=== PATIENT | male | born 1940 | race Caucasian/White ===

== ENCOUNTER 2022-09-26 10:36 | Emergency (ER) | payer MEDICARE, OTHER, SELFPAY ==
[2022-09-26] VITALS (9 sets, daily range): BP systolic 135–180; BP diastolic 92–114; PULSE 63–92; RESP 14–19; TEMP 36.6; O2SAT 92–96
--- NOTE | 2022-09-26 | XRR_ITS ---
PROCEDURE INFORMATION: Exam: XR Left Shoulder Exam date and time: 09/26/2022 1:17 PM Age: 82 years old Clinical indication: Device placement; Other: Post reduction TECHNIQUE: Imaging protocol: Radiologic exam of the left shoulder. Views: 1 view. COMPARISON: No relevant prior studies available. FINDINGS: Bones/joints: There is fracture deformity in the lateral aspect of the humeral head Soft tissues: Normal. XR/XR shoulder LT 1V [id number] IMPRESSION: 1. A fracture deformity lateral aspect of the humeral head 2. Otherwise negative examination
--- NOTE | 2022-09-26 10:41 | XRR_ITS ---
PROCEDURE INFORMATION: Exam: XR Right Shoulder Exam date and time: 09/26/2022 10:52 AM Age: 82 years old Clinical indication: Injury or trauma; Blunt trauma (contusions or hematomas); Right; Injury date: 09/29/22; Injury details: Fall x today on cattle gate. Pain in RT shoulder; Additional info: Fall injury to shoulder TECHNIQUE: Imaging protocol: Radiologic exam of the right shoulder. Views: 2 or more views. COMPARISON: No relevant prior studies available. FINDINGS: Bones/joints: Anterior dislocation of the right shoulder with Hill-Sachs fracture. There is a large mildly displaced fracture fragment measuring 3 cm. Moderate acromioclavicular joint degenerative changes. Osteopenia. Soft tissues: Normal. XR/XR shoulder RT min 2V* [id number] IMPRESSION: Anterior dislocation of the right shoulder with Hill-Sachs fracture. There is a large mildly displaced fracture fragment measuring 3 cm.
--- NOTE | 2022-09-26 11:14 | ED_ITS ---
Documented by User: GELY Pittman 09/26/22 15:43 HPI - Extremity Problem General: Chief complaint: Extremity Injury, Upper Stated complaint: Fall, Right shoulder injury Time Seen by Provider: 09/26/22 10:51 History of Present Illness: Patient is a 82-year-old male who comes to the ED with right shoulder injury. Injury occurred just prior to arrival. He was out side opening up a metal gate. He states that he tripped over something while opening the gate and started falling forward. He is unsure of the exact way his shoulder was injured but states that while he was falling forward he felt sharp pain in his right shoulder. He denies hitting his shoulder on gait or on the ground. Patient says he did not fall and hit the ground. Denies any head trauma, loss of consciousness or headache. Due to the pain in his right shoulder he went down and laid on the ground. He said his pain was a 10 out of 10 at that time. Pain worsens if he tries to move his right arm. Here in the ED he is resting with his arm in a comfortable position and he rates his pain currently a 5 out of 10. Past medical history of COPD and is on 2 L of oxygen at home at night. Associated symptoms: Deny chest pain, fever(s) or rash Review of Systems Const: Denies: fever(s), chills or fatigue Eyes: Denies: change in vision or eye discomfort ENMT: Denies: throat pain, odynophagia, nasal discharge or nasal congestion Card: Denies: chest pain, palpitations, edema, swelling of feet/ankles, dyspnea on exertion or orthopnea Resp: Denies: dyspnea, productive cough or non-productive cough GI: Denies: abdominal pain, nausea, vomiting, diarrhea, constipation or hematochezia : Denies: flank pain, difficulty urinating, dysuria or hematuria Musc: Reports: extremity pain (Right shoulder pain) and limited range of motion (Right shoulder); Denies: neck pain, back pain or extremity swelling Skin/Breast: Denies: rash or new lesions Neuro: Denies: headache(s), numbness in extremities or weakness in extremities [facility] ED PFS: Medical History (Updated 09/27/22 @ 07:19 by Orlando Singer DO) COPD (chronic obstructive pulmonary disease) No pertinent family history Physical Exam Const: COMMON NORMALS: patient oriented x3 HENMT: COMMON NORMALS: normocephalic HEAD & SCALP: normocephalic MOUTH: Normal oral and palatal mucosa present THROAT: posterior oropharynx normal and uvula midline Neck/C-Spine: COMMON NORMALS: supple GENERAL: Yes normal visual inspection Resp: COMMON NORMALS: normal respiratory effort, No retractions, No use of accessory muscles and clear to auscultation bilaterally AUSCULTATION: clear to auscultation bilaterally Cardio: COMMON NORMALS: regular rate, regular rhythm, S1 normal heart sound present, S2 normal heart sound present, No gallops present (Cardio), No clicks present (Cardio), No murmurs present (Cardio) and Peripheral pulses 2+ throughout RATE: regular rate RHYTHM: regular rhythm HEART SOUNDS: S1 normal heart sound present and S2 normal heart sound present PERIPHERAL PULSES: Peripheral pulses 2+ throughout GI: COMMON NORMALS: Normal to inspection, nondistended, normoactive bowel sounds present, Soft to palpation, non-tender and no masses PALPATION: Yes Soft to palpation : COMMON NORMALS: Yes no CVA tenderness BLADDER/KIDNEY EXAM: Yes no CVA tenderness Back/Pelvis: COMMON NORMALS: no CVA tenderness Extremity: NARRATIVE EXTREMITY EXAM: Right shoulder?tenderness around head of humerus. Limited range of motion due to pain. Neurovascular intact and normal cap refill under 2 seconds. Neuro: COMMON NORMALS: patient oriented x3 GAIT: Yes Normal gait present Skin: GENERAL SKIN EXAM: dry skin Course Vital Signs: Vital signs: Vital Signs Temperature 97.9 F 09/26/22 11:00 Pulse Rate 71 09/26/22 15:27 Respiratory Rate 18 09/26/22 16:25 Blood Pressure 148/100 09/26/22 15:27 Pulse Oximetry 95 09/26/22 16:25 Oxygen Delivery Me thod 09/26/22 15:27 Oxygen Flow Rate 2 09/26/22 15:27 MDM - Extremity (Nontraumatic) Medical Decision Making Patient is a 82-year-old male who comes to the ED with right shoulder injury. Injury occurred just prior to arrival. Denies any head trauma, headache, loss of consciousness. Vitals stable. Right shoulder?tenderness around head of humerus. Limited range of motion due to pain. Neurovascular intact and normal cap refill under 2 seconds. Right shoulder x-ray showed anterior dislocation with Hill-Sachs fx. I discussed patient case with Dr. Singer and he will be performing the conscious sedation and reduction. See his note for details on procedure. Lab Data Radiology Impressions Shoulder X-Ray 09/26/22 10:41 IMPRESSION: Anterior dislocation of the right shoulder with Hill-Sachs fracture. There is a large mildly displaced fracture fragment measuring 3 cm. Discharge Plan Discharge Patient Disposition: Home Clinical Impression: Anterior dislocation of right shoulder, Fracture of humerus Condition: Stable Prescriptions: New tramadol 50 mg tablet 50 mg PO QID PRN (Reason: pain) Qty: 20 0RF No Action atorvastatin 20 mg tablet 10 mg PO BEDTIME Aspir-81 81 mg Tablet,Delayed Release (Dr/Ec) 81 mg PO DAILY sotalol 120 mg tablet 120 mg PO BID Eliquis 5 mg tablet 50 mg PO BID Discharge Orders: Discharge ED (Routine); Ordered 09/26/22 Ordered By: Orlando Singer Discharge Diet: Usual diet Discharge Activity: Limit activity as instructed Patient Instructions: Opioid Safety, Pain Management Activity Restrictions/Additional Instructions: You were seen today for anterior shoulder dislocation there is a small fracture associated with it as well. Remain in the shoulder immobilizer until released by Ortho. Case management make arrangements for follow-up with orthopedic surgeon. Use the tramadol as needed for pain. Sign Out Sign Out Data: Patient Sign Out occurred on 09/26/22 at 12:03. Patient's care was discussed, and care was transferred from to Orlando Singer DO. Coding Level of Care Code ED Associate Account Director for [facility] Documented by User: Orlando Singer DO 09/27/22 07:27 HPI - Extremity Problem General: Chief complaint: Extremity Injury, Upper Stated complaint: Fall, Right shoulder injury Time Seen by Provider: 09/26/22 10:51 [facility] ED PFSH: Medical History (Updated 09/27/22 @ 07:19 by Orlando Singer DO) COPD (chronic obstructive pulmonary disease) No pertinent family history Procedures Orthopedic Joint Reduction Joint #1: Time Out Performed: Yes Side: right Joint Reduction Location: shoulder Analgesia: procedural sedation Shoulder Technique Used (if applicable): traction/counter-traction Post-reduction neuro exam: intact and no change Post-reduction vascular: intact and no change Post Reduction X-Ray Obtained: Yes Post Reduction X-Ray Results: reduced Splint Applied: Yes (Shoulder immobilizer) Patient Tolerated Procedure: well Procedural Sedation Indication: fracture/dislocation reduction ASA Class: II Time of Last PO Intake: 08:30 Fentanyl: IV Fentanyl dose (mcg): 50 Midazolam: IV Midazolam dose (mg): 3 Patient Tolerated Procedure: well Complications: none Interventions: oxygen applied Additional Comments: Oxygen probe applied prophylactically had onset of conscious sedation. Course Vital Signs: Vital signs: Vital Signs Temperature 97.9 F 09/26/22 11:00 Pulse Rate 71 09/26/22 15:27 Respiratory Rate 18 09/26/22 16:25 Blood Pressure 148/100 09/26/22 15:27 Pulse Oximetry 95 09/26/22 16:25 Oxygen Delivery Me thod 09/26/22 15:27 Oxygen Flow Rate 2 09/26/22 15:27 MDM - Extremity (Nontraumatic) Medical Decision Making Patient is a 82-year-old male who comes to the ED with right shoulder injury. I njury occurred just prior to arrival. Denies any head trauma, headache, loss of consciousness. Vitals stable. Right shoulder?tenderness around head of humerus. Limited range of motion due to pain. Neurovascular intact and normal cap refill under 2 seconds. Right shoulder x-ray showed anterior dislocation with Hill-Sachs fx. I discussed patient case with Dr. Singer and he will be performing the conscious sedation and reduction. See his note for details on procedure. Patient care handoff received from Jona Mendez continuation of ED evaluation. I personally saw and evaluated patient and reperformed burns portions of E/M. Patient seen and evaluated by myself. Exam completed. History and exam same as documented by Jona Mendez. Reviewed x-rays patient has a anterior shoulder dislocation with Mildly displaced fracture fragment with Hill-Sachs fracture. Procedural sedation successful reduction of shoulder on exam confirmed by postreduction x-ray. Shoulder immobilizer placed discharge home with pain medications. Referral made to orthopedics. Medical Records I reviewed the patient's medical records. Lab Data I reviewed the patient's lab results. Radiology Impressions Shoulder X-Ray 09/26/22 10:41 IMPRESSION: Anterior dislocation of the right shoulder with Hill-Sachs fracture. There is a large mildly displaced fracture fragment measuring 3 cm. Discharge Plan Discharge Patient Disposition: Home Clinical Impression: Anterior dislocation of right shoulder, Fracture of humerus Condition: Stable Prescriptions: New tramadol 50 mg tablet 50 mg PO QID PRN (Reason: pain) Qty: 20 0RF No Action atorvastatin 20 mg tablet 10 mg PO BEDTIME Aspir-81 81 mg Tablet,Delayed Release (Dr/Ec) 81 mg PO DAILY sotalol 120 mg tablet 120 mg PO BID Eliquis 5 mg tablet 50 mg PO BID Discharge Orders: Discharge ED (Routine); Ordered 09/26/22 Ordered By: Orlando Singer Discharge Diet: Usual diet Discharge Activity: Limit activity as instructed Patient Instructions: Opioid Safety, Pain Management Activity Restrictions/Additional Instructions: You were seen today for anterior shoulder dislocation there is a small fracture associated with it as well. Remain in the shoulder immobilizer until released by Ortho. Case management make arrangements for follow-up with orthopedic surgeon. Use the tramadol as needed for pain. Sign Out Sign Out Data: Patient Sign Out occurred on 09/26/22 at 12:03. Patient's care was discussed, and care was transferred from to Orlando Singer DO. Coding Level of Care Code ED Associate Account Director for Barry Lassiter
[2022-09-26] MEDS: morphine 4 mg/mL SDV 1 mL IM (11:23)
[2022-09-26] MEDS: fentaNYL 50 mcg/mL INJ 2mL 100 MCG IVP (13:13)
[2022-09-26] MEDS: midazolam 1 mg/mL INJ 2 mL 5 MG IVP (13:58)
--- NOTE | 2022-09-26 14:05 | PC.NURSE ---
Pt eating ice chips, sipping on water, tolerating well.
--- NOTE | 2022-09-26 15:25 | PC.NURSE ---
Pt sat up in bed, c/o pain. Dr Singer at bedside talking with pt. After sitting up for about 1 min pt c/o nausea and dizziness, laid back down in bed.
[2022-09-26] MEDS: ondansetron 2 mg/ML SDV 2 mL 4 MG IVP (15:33)
[2022-09-26] MEDS: morphine 4 mg/mL SDV 1 mL IVP (16:25)
--- NOTE | 2022-09-27 09:07 | DCPLANNER ---
Addendum entered by Rosalva Campbell 10/04/22 08:44: appointment cancelled Addendum entered by Rosalva Campbell 10/03/22 07:32: Patient has a follow up appointment scheduled for Monday, October 03, [address] Cary at ortho. Clinic will call patient with appointment information. Original Note: landscape manager had message to schedule a follow up appointment for patient with ortho. landscape manager sent patients information to the front office staff at ortho. Patients information will be printed and reviewed. Clinic will call patient with appointment information.
--- NOTE | 2022-09-27 13:33 | DCPLANNER ---
pmo project manager called patient due to no primary care physician - patients stated that patient sees Dr. Matteo Cope in [place].
== END 2022-09-26 16:43 | disposition home or self-care (01) ==
PROVIDERS: Emergency Provider Family Medicine
DX: S42.291A Other displaced fracture of upper end of right humerus, initial encounter for closed fracture (principal); S43.084A Other dislocation of right shoulder joint, initial encounter; J44.9 Chronic obstructive pulmonary disease, unspecified; W01.0XXA Fall on same level from slipping, tripping and stumbling without subsequent striking against object, initial encounter; Z79.01 Long term (current) use of anticoagulants; Z79.82 Long term (current) use of aspirin
CPT/HCPCS: 23650; 73020; 73030; 96372; 96374; 96375; 99152; 99284; J2250; J2270; J2405; J3010